=== PATIENT | female | born 1985 | race Caucasian/White ===

== ENCOUNTER 2017-12-08 05:52 | Emergency (ER) | payer BC, MEDICAID ==
[~2017-12-08] VITALS: Ht 170.2 cm; Wt 86.2 kg
[2017-12-08] MEDS ORDERED: ondansetron/PF 4mg/2ml inj IV ONE (06:10)
[2017-12-08] MEDS ORDERED: morphine 4 MG/ML inj SYRINge IV PRN (06:10)
[2017-12-08] MEDS ORDERED: normal saline 1000ML IV soln IVB ONE (06:10)
[2017-12-08 06:21] LABS: CLARITY,URINE CLEAR (Clear); COLOR,URINE YELLOW (Yellow); GLUCOSE, URINE NEGATIVE (Neg); KETONES,URINE NEGATIVE (Neg); LEUKOCYTE ESTERASE ,URINE NEGATIVE (Neg); NITRITES, URINE NEGATIVE (Neg); OCCULT BLOOD,URINE SMALL (Neg); PROTEIN,URINE 30 mg/dl (Neg); URINE HCG NEGATIVE (NEG); UROBILINOGEN,URINE 0.2 E.U/dL (0.2-1.0)
[2017-12-08 06:23] LABS: UA COLLECTION TYPE CLN CATCH MIDSTREAM
[2017-12-08 06:27] LABS: BACTERIA,URINE 1+ /HPF (Neg); MUCUS STRANDS NONE SEEN /LPF (Neg); SQUAMOUS EPITHELIAL CELL,UR MANY /LPF (FEW); WBC,URINE 0-4 /HPF (0-4)
[2017-12-08 06:33] LABS: BASOPHILS % (AUTO) 0.6 % (0-1); EOSINOPHILS # (AUTO) 0.1 X10'3 (0-0.9); EOSINOPHILS % (AUTO) 2.1 % (0-6); HEMATOCRIT 40.5 % (35.0-45.0); HEMOGLOBIN 13.6 g/dl (12.0-16.0); LYMPHOCYTES # (AUTO) 0.8 X10'3 (1.1-4.8); LYMPHOCYTES % (AUTO) 13.8 % (21-51); MEAN CORPUSCULAR HEMOGLOBIN 29.3 PG (27.0-31.0); MEAN CORPUSCULAR HGB CONC 33.7 % (33.0-36.5); MEAN CORPUSCULAR VOLUME 86.8 FL (78-98); MEAN PLATELET VOLUME 8.4 FL (7.4-10.4); MONOCYTES # (AUTO) 0.5 X10'3 (0-0.9); MONOCYTES % (AUTO) 8.6 % (2-12); NEUTROPHILS # (AUTO) 4.2 X10'3 (1.8-7.7); NEUTROPHILS % (AUTO) 74.9 % (42-75); PLATELET COUNT 181 X10'3 (140-440); RED BLOOD COUNT 4.66 X10'6 (4.20-5.60); RED CELL DISTRIBUTION WIDTH 13.7 % (11.5-14.5); WHITE BLOOD COUNT 5.7 X10'3 (4.5-11.0)
[2017-12-08 06:46] LABS: ALANINE AMINOTRANSFERASE 64 U/L (12-78); ALBUMIN 3.9 G/DL (3.4-5.0); ALBUMIN/GLOBULIN RATIO 1.1 (1.1-1.5); ALKALINE PHOSPHATASE 71 IU/L (46-116); ANION GAP 12 (8-16); ASPARTATE AMINO TRANSFERASE 34 U/L (10-37); BILIRUBIN,TOTAL 0.4 MG/DL (0.1-1.0); BLOOD UREA NITROGEN 15 MG/DL (7-18); BUN/CREATININE RATIO 11.6 (6.6-38.0); CALCIUM 8.9 MG/DL (8.5-10.1); CHLORIDE 108 MMOL/L (99-107); CREATININE 1.29 MG/DL (0.40-0.90); GLUCOSE 119 MG/DL (70-104); LIPASE 74 U/L (73-393); POTASSIUM 3.8 MMOL/L (3.5-5.1); SODIUM 142 MMOL/L (135-145); TOTAL CARBON DIOXIDE 22.5 MMOL/L (24-32); TOTAL PROTEIN 7.5 G/DL (6.4-8.2); eGFR 49 ML/MIN
[2017-12-08] MEDS ORDERED: ONDA4TAB6 PO (07:40)
[2017-12-08] MEDS ORDERED: proCHLORperazine 10 MG/2 ml inj IV ONE (07:55)
[2017-12-08 08:49] VITALS: BP 133/82
== END 2017-12-08 08:54 | disposition home or self-care (01) ==
LOC: ER 05:53
DX: R10.84 Generalized abdominal pain (principal); R11.2 Nausea with vomiting, unspecified; R19.7 Diarrhea, unspecified; F17.200 Nicotine dependence, unspecified, uncomplicated; Z79.899 Other long term (current) drug therapy
CPT/HCPCS: 36415; 80053; 81001; 81025; 83690; 85025; 96361; 96374; 96375; 99284; J0780; J2270; J2405; J7030

== ENCOUNTER 2019-07-08 09:04 | Emergency (ER) | payer BC ==
[~2019-07-08] VITALS: Ht 170.2 cm; Wt 98.6 kg
[~2019-07-08 09:04] MED LIST: ONDA4TAB6 PO
[2019-07-08] MEDS ORDERED: AMOX500C2 PO (09:47)
[2019-07-08] MEDS ORDERED: bupivacaine 0.25%/epinephrine 1:200,000 inj (contains preserv. MDV) IJ ONE ×2 (10:00→10:10)
[2019-07-08] MEDS ORDERED: sodium bicarbonate (8.4%) 1 mEq/ml syringe IV ONE (10:00)
[2019-07-08] MEDS ORDERED: ACET-3068 PO (10:04)
[2019-07-08] MEDS ORDERED: AMOX-419 PO (10:04)
[2019-07-08] MEDS ORDERED: IBUP-1984 PO (10:05)
[2019-07-08] MEDS ORDERED: sodium bicarbonate (8.4%) inj. 1 MEQ/ML ML IV ONE (10:25)
[2019-07-08] MEDS ORDERED: amox tr/potassium clavulanate 500mg/125mg TAB PO SCH ×2 (11:15→17:30)
[2019-07-08 11:21] VITALS: BP 118/52
== END 2019-07-08 11:23 | disposition home or self-care (01) ==
LOC: ER 09:05
DX: K04.7 Periapical abscess without sinus (principal)
CPT/HCPCS: 41800; 99283